=== PATIENT | male | born 1980 | race Two or more races ===

== ENCOUNTER 2019-02-21 17:51 | Emergency (ER) | payer OTHER, SELFPAY ==
[2019-02-21 17:52] VITALS: BP 119/76; PULSE 72; RESP 15; TEMP 36.9; O2SAT 100; BMI 23.2
--- NOTE | 2019-02-21 18:52 | ED.VISSUMM ---
- ER Visit Summary Date of Service: 02/21/19 Chief Complaint: Back pain History of Present Illness: The patient is a 38 M who states that last night he was dumping a container trash who lifted up over his head leaning towards the left he felt some pulling in his mid back. Today he states he feels that there are muscles he is never used before that are very sore. He denies any paresthesias or weakness. No fevers or chills. No recent injections, drug use, or red flags noted. Physical Examination: Afebrile vital signs stable Back demonstrates tenderness to palpation in the mid thoracic upper thoracic region particularly the muscles. There is no rash swelling or fluctuance to suggest abscess. Pain is also exacerbated by flexing his head forward. Feels better with the neck extended. Emergency Department Course and Treatment: The hospitalist translating system does not speak this patient's particular dialect. His boss however does speak [place] and this gentlemen's negative time. We will treat this as a muscle strain with anti-inflammatories. Return if worsening or concerns follow-up with corporate care Impression: 1. Acute thoracic back muscle strain This note was generated with [employer] dictation software. It may contain incorrect words, spelling, and punctuation that were not noted in review of the chart prior to signing ED Disposition - Plan for ED Patient: Disposition: Home or Assisted Living Instructions: Back Sprain/Strain Prescriptions: Ibuprofen [Motrin] 600 mg PO Q6H PRN PRN #21 tab PRN Reason: back pain Prescription Printed Referrals: [facility] [GROUP OF PHYSICIANS] - 3-5 Days if not improving
== END 2019-02-21 19:10 | disposition home or self-care (01) ==
PROVIDERS: Emergency Provider Emergency Medicine
DX: S29.012A Strain of muscle and tendon of back wall of thorax, initial encounter (principal); X50.9XXA Other and unspecified overexertion or strenuous movements or postures, initial encounter; Y93.9 Activity, unspecified; Y92.9 Unspecified place or not applicable; Y99.9 Unspecified external cause status; Z72.0 Tobacco use
CPT/HCPCS: 99282